=== PATIENT | male | born 1995 | race Native Hawaiian/Other Pacific Islander ===

== ENCOUNTER 2017-08-13 15:56 | Emergency (ER) | payer SELFPAY ==
[~2017-08-13] VITALS: Ht 188 cm; Wt 70.0 kg
[2017-08-13 16:47] VITALS: BP 123/74; PULSE 86; RESP 17; TEMP 97.9; O2SAT 97
--- NOTE | 2017-08-13 17:24 | PD ---
HPI Chief Complaint: ENT Complaint Time Seen by Provider: 17:04 Travel History International Travel<30 days: No Contact w/Intl Traveler<30days: No Traveled to known affect area: No History of Present Illness HPI 21-year-old male presents to the emergency room for evaluation of sore throat for the past 5 days. He has been taking [id number] DayQuil without significant relief in symptoms. He has associated congestion but denies fever, chills, nausea, vomiting, or cough. No chronic medical conditions or daily medications. Father is sick with similar symptoms. PFSH Past Medical History Medical History: Denies Significant Hx Diminished Hearing: No Tetanus Vaccination: < 5 Years Influenza Vaccination: Yes ?: Not Past Surgical History Surgical History: No Previous Surgery Social History Alcohol Use: No Tobacco Use: No Substance Use: No Allergies-Medications (Allergen,Severity, Reaction): Coded Allergies: No Known Allergies (Unverified , 08/13/17) Reported Meds & Prescriptions Reported Meds & Active Scripts Active No Active Prescriptions or Reported Medications Review of Systems Except as stated in HPI: all other systems reviewed are Neg Physical Exam Narrative GENERAL: Well-nourished, well-developed male in no acute distress. Afebrile. Ambulatory. SKIN: Focused skin assessment warm/dry. HEAD: Normocephalic. EYES: No scleral icterus. No injection or drainage. NECK: Supple, trachea midline. No JVD or lymphadenopathy. ENT: Mucosa pink and moist. Moderate erythema without exudates. No uvular edema. No uvular, palatal, or tonsillar deviation. Airway patent. Nasal turbinates appear normal without nasal blood, purulent drainage or septal hematoma. EARS: Bilateral pinnae and external canals appear within normal limits. Bilateral tympanic membranes without erythema, dullness or perforation. CARDIOVASCULAR: Regular rate and rhythm without murmurs, gallops, or rubs. RESPIRATORY: Breath sounds equal bilaterally. No accessory muscle use. Data Data Last Documented VS Vital Signs Date Time Temp Pulse Resp B/P (MAP) Pulse Ox O2 Delivery O2 Flow Rate FiO2 08/13/17 16:47 97.9 86 17 123/74 (90) 97 Orders Orders Group A Rapid Strep Screen (08/13/17 16:47) Strep Culture (Group A) (08/13/17 16:50) MDM Medical Decision Making Medical Screen Exam Complete: Yes Emergency Medical Condition: Yes Medical Record Reviewed: Yes Differential Diagnosis Strep, flu, pneumonia, URI Narrative Course 21-year-old male presents to the emergency room for evaluation of sore throat for the past 5 days. He has associated congestion but denies any fever, chills , nausea, vomiting. He is afebrile and well-appearing in the emergency room. Vital signs stable. Rapid strep is negative. This is viral pharyngitis or URI. Patient told to follow-up with her primary care physician or return for worsening symptoms. He understands and agrees to plan. Diagnosis Primary Impression: Viral upper respiratory infection Referrals: Primary Care Physician Additional Instructions: Rest and drink plenty of fluids. Take ibuprofen with food as directed, as needed for pain. Follow-up with a primary care physician. Return to the emergency room for worsening symptoms. Med/Other Pt SpecificInfo: Prescription(s) given Scripts No Active Prescriptions or Reported Meds Disposition: 01 DISCHARGE HOME Condition: Stable Josselin Jasso Aug 13, 2017 17:24
== END 2017-08-13 17:36 | disposition home or self-care (01) ==
LOC: NEPD 15:56
DX: J06.9 Acute upper respiratory infection, unspecified (principal); B97.89 Other viral agents as the cause of diseases classified elsewhere
CPT/HCPCS: 87081; 87880; 99283